=== PATIENT | female | born 1970 | race Caucasian/White ===

== ENCOUNTER → 2021-03-06 12:34 | Outpatient (CLI) | payer BC, SELFPAY ==
--- NOTE | ~2021-03-06 | MM_ITS ---
EXAMINATION: MM screening lanny BI w mauricio HISTORY: Screening TECHNIQUE: Craniocaudal and mediolateral oblique 3-D tomosynthesis images were obtained and synthetic 2-D images were generated. CAD analysis was submitted and interpreted. COMPARISON: Comparison to multiple prior studies sequentially, with oldest reviewed study dated 09/02. BREAST PARENCHYMAL COMPOSITION: Breast composed of scattered areas of fibroglandular density. FINDINGS: Breast asymmetries are stable. No new masses, calcifications or architectural distortion. T here is no evidence of suspicious mass, calcification, or architectural distortion to suggest maligna ncy in either breast. There has been no suspicious interval change. IMPRESSION: 1. No mammographic evidence of malignancy. 2. Recommend routine screening mammography in one year. BI-RADS CATEGORY 2 - BENIGN FINDINGS Reviewed, dictated and finalized at location A.
== END ==
PROVIDERS: Visit Provider Nurse Practitioner Obstetrics & Gynecology
DX: Z12.31 Encounter for screening mammogram for malignant neoplasm of breast (principal)
CPT/HCPCS: 77063; 77067

== ENCOUNTER 2024-04-09 14:03 | Outpatient (CLI) | payer BC, SELFPAY ==
--- NOTE | ~2024-04-09 | MM_ITS ---
EXAMINATION: MM screening lanny BI w mauricio HISTORY: Screening TECHNIQUE: Craniocaudal and mediolateral oblique 3-D tomosynthesis images were obtained and synthetic 2-D images were generated. CAD analysis was submitted and interpreted. COMPARISON: 03/06/2021 BREAST PARENCHYMAL COMPOSITION: Not dense: There are scattered areas of fibroglandular density. FINDINGS: There is no evidence of suspicious mass, calcification, or architectural distortion to sugg est malignancy in either breast. There has been no suspicious interval change. IMPRESSION: 1. No mammographic evidence of malignancy. 2. Recommend routine screening mammography in one year. BI-RADS Category 1: Negative Reviewed, dictated and finalized at location B.
== END 2024-04-09 14:04 | disposition home or self-care (01) ==
LOC: MICIMG 14:05
PROVIDERS: PCP Family Medicine; Visit Provider Nurse Practitioner
DX: Z12.31 Encounter for screening mammogram for malignant neoplasm of breast (principal)
CPT/HCPCS: 77063; 77067

== ENCOUNTER 2025-04-12 14:55 | Outpatient (CLI) | payer BC, SELFPAY ==
--- NOTE | ~2025-04-12 | MM_ITS ---
EXAMINATION: MM screening lanny BI w mauricio HISTORY: Screening TECHNIQUE: Craniocaudal and mediolateral oblique 3-D tomosynthesis images were obtained and synthetic 2-D images were generated. CAD analysis was submitted and interpreted. COMPARISON: Comparison to multiple prior studies sequentially, with oldest reviewed study dated 03/06/2021. BREAST PARENCHYMAL COMPOSITION: There are scattered areas of fibroglandular density. FINDINGS: There is no evidence of suspicious mass, calcification, or architectural distortion to suggest malignancy in either breast. There has been no suspicious interval change. IMPRESSION: 1. No mammographic evidence of malignancy. 2. Recommend routine screening mammography in one year. BI-RADS Category 1: Negative Reviewed, dictated and finalized at location O.
== END 2025-04-12 14:56 | disposition home or self-care (01) ==
LOC: MICIMG 14:58
PROVIDERS: PCP Obstetrics & Gynecology; Visit Provider Family Medicine
DX: Z12.31 Encounter for screening mammogram for malignant neoplasm of breast (principal)
CPT/HCPCS: 77063; 77067